=== PATIENT | male | born 1960 | race Caucasian/White ===

== ENCOUNTER 2018-10-21 04:47 | Emergency (ER) | payer MEDICAID ==
[~2018-10-21] VITALS: Ht 177.8 cm; Wt 104.5 kg
[2018-10-21 04:48] VITALS: Ht 177.8 cm; Wt 104.5 kg
[2018-10-21] MEDS ORDERED: NEURONTIN 300300 MG PO (04:50)
[2018-10-21] MEDS ORDERED: COZAAR100 MG PO (04:51)
[2018-10-21] MEDS ORDERED: ZOLOFT50 MG PO (04:51)
[2018-10-21] MEDS ORDERED: VOLTAREN75 MG PO (04:52)
[2018-10-21] MEDS ORDERED: OMEPRAZOLE20 M1 PO (04:52)
[2018-10-21] MEDS ORDERED: HYDROCHLOROTH12.5 M1 PO (04:52)
[2018-10-21] MEDS ORDERED: NORVASC10 MG PO (04:52)
[2018-10-21] MEDS ORDERED: IBUPROFEN800 MG PO (04:53)
[2018-10-21] MEDS ORDERED: SKELAXIN800 MG PO (04:53)
[2018-10-21 05:37] LABS: BASOPHILS 0.2 % (0-2); EOSINOPHILS 0 % (0-7); HEMATOCRIT 37.9 % (42.0-54.0); HEMOGLOBIN 13.5 g/dL (13.5-17.5); IMMATURE GRANULOCYTES 0.2 % (0-5); LYMPHOCYTES 11.8 % (15-50); MCH 32.7 pg (26.0-34.0); MCHC 35.6 g/dL (31.0-37.0); MCV 91.8 fL (80.0-100.0); MEAN PLATELET VOLUME 10.2 fL (7.4-10.4); MONOCYTES 16.8 % (2-11); PLATELET COUNT 158 10x3/uL (130-400); RBC 4.13 10x6/uL (4.20-6.10); WBC 5.4 10x3/uL (4.8-10.8)
[2018-10-21] MEDS ORDERED: MECLIZINE HCL25 MG PO (05:49)
[2018-10-21 05:50] LABS: ALBUMIN 4.2 g/dL (3.4-5.0); ALKALINE PHOSPHATASE 93 U/L (46-116); ALT (SGPT) 118 U/L (10-68); CALC OSMOLALITY 279 mosm/kg (275-300); CARBON DIOXIDE 23.7 mmol/L (21.0-32.0); CHLORIDE - SERUM 95 mmol/L (98-107); CREATININE - SERUM 0.8 mg/dL (0.6-1.3); GLUCOSE 183 mg/dL (74-106); POTASSIUM - SERUM 3.2 mmol/L (3.5-5.1); PROTEIN - SERUM 7.3 g/dL (6.4-8.2); SODIUM 136 mmol/L (136-145); UREA NITROGEN 22 mg/dL (7-18); eGFR NON AFRICAN AMERICAN > 90 mL/min (90-120)
[2018-10-21 07:25] VITALS: BP 149/96
== END 2018-10-21 07:26 | disposition home or self-care (01) ==
LOC: D.ER 04:47
PROVIDERS: Emergency Medicine
DX: T38.0X5A Adverse effect of glucocorticoids and synthetic analogues, initial encounter (principal); Y92.89 Other specified places as the place of occurrence of the external cause; E87.6 Hypokalemia; F15.951 Other stimulant use, unspecified with stimulant-induced psychotic disorder with hallucinations

== ENCOUNTER 2019-09-04 14:10 | Emergency (ER) | payer MEDICAID ==
[~2019-09-04] VITALS: Ht 177.8 cm; Wt 100.0 kg
[~2019-09-04 14:10] MED LIST: COZAAR100 MG PO; HYDROCHLOROTH12.5 M1 PO; IBUPROFEN800 MG PO; MECLIZINE HCL25 MG PO; NEURONTIN 300300 MG PO; NORVASC10 MG PO; OMEPRAZOLE20 M1 PO; SKELAXIN800 MG PO; VOLTAREN75 MG PO; ZOLOFT50 MG PO
[2019-09-04 14:16] VITALS: Ht 177.8 cm; Wt 100.0 kg
[2019-09-04] MEDS ORDERED: BUPROPION XL300 MG PO (14:24)
[2019-09-04] MEDS ORDERED: LEXAPRO20 MG PO (14:24)
[2019-09-04] MEDS ORDERED: SINEQUAN50 MG PO (14:26)
[2019-09-04 14:54] LABS: BASOPHILS 0.1 % (0-2); EOSINOPHILS 0.9 % (0-7); HEMATOCRIT 45.8 % (42.0-54.0); HEMOGLOBIN 16.2 g/dL (13.5-17.5); IMMATURE GRANULOCYTES 0.1 % (0-5); LYMPHOCYTES 22.9 % (15-50); MCH 33.3 pg (26.0-34.0); MCHC 35.4 g/dL (31.0-37.0); MCV 94.2 fL (80.0-100.0); MEAN PLATELET VOLUME 9.6 fL (7.4-10.4); MONOCYTES 12.1 % (2-11); NEUTROPHILS 63.9 % (40-80); RBC 4.86 10x6/uL (4.20-6.10); RDW 12.4 % (11.5-14.5); WBC 7.8 10x3/uL (4.8-10.8)
[2019-09-04 15:03] LABS: CALC OSMOLALITY 278 mosm/kg (275-300); CALCIUM 9.1 mg/dL (8.5-10.1); CARBON DIOXIDE 25.3 mmol/L (21.0-32.0); CHLORIDE - SERUM 100 mmol/L (98-107); CREATININE - SERUM 1.5 mg/dL (0.6-1.3); GLUCOSE 128 mg/dL (74-106); INR 0.98 (0.85-1.17); POTASSIUM - SERUM 3.9 mmol/L (3.5-5.1); PROTIME 12.5 SECONDS (11.6-15.0); SODIUM 137 mmol/L (136-145); UREA NITROGEN 20 mg/dL (7-18); eGFR NON AFRICAN AMERICAN 51 mL/min (90-120)
[2019-09-04 15:04] LABS: APTT 27.2 SECONDS (22.8-39.4)
[2019-09-04 15:13] LABS: PLATELET COUNT 249 10x3/uL (130-400)
[2019-09-04 15:22] LABS: ALBUMIN 3.8 g/dL (3.4-5.0); ALKALINE PHOSPHATASE 101 U/L (46-116); ALT (SGPT) 125 U/L (10-68); BILIRUBIN - TOTAL 0.91 mg/dL (0.2-1.3); CKMB 2.3 U/L (0.0-3.6); CREATINE KINASE 146 UL (21-232); MAGNESIUM - SERUM 2.2 mg/dL (1.8-2.4); PROTEIN - SERUM 6.8 g/dL (6.4-8.2); THYROID STIMULATING HORMONE 2.03 uIU/mL (0.36-3.74)
[2019-09-04 15:25] LABS: TROPONIN-I < 0.017 ng/mL (0.000-0.060)
[2019-09-04] MEDS ORDERED: ANTIVERT12.5 MG PO (16:14)
[2019-09-04 16:42] VITALS: BP 116/76
== END 2019-09-04 16:42 | disposition home or self-care (01) ==
LOC: D.ER 14:10
PROVIDERS: Emergency Medicine
DX: R51 Headache (principal); R42 Dizziness and giddiness; R79.89 Other specified abnormal findings of blood chemistry; I10 Essential (primary) hypertension